=== PATIENT | female | born 1990 | race African-American/Black ===

== ENCOUNTER 2016-08-08 16:52 | Emergency (ER) | payer OTHER | END 2016-08-08 18:29 | disposition home or self-care (01) | LOC: CFTX 16:52 → CED 16:52 → CFTX 17:29 | DX: J02.0 Streptococcal pharyngitis (principal); F17.200 Nicotine dependence, unspecified, uncomplicated | CPT/HCPCS: 36415; 87880; 96360; 96361; 96372; 96374; 99284; J0561; J1885 ==

== ENCOUNTER 2016-08-09 09:59 | Emergency (ER) | payer OTHER | END 2016-08-09 11:48 | disposition home or self-care (01) | LOC: CFTX 09:59 → CED 09:59 → CFTX 11:29 | DX: J02.0 Streptococcal pharyngitis (principal); F17.200 Nicotine dependence, unspecified, uncomplicated | CPT/HCPCS: 96372; 99283; J1100 ==